=== PATIENT | female | born 1940 | race Caucasian/White ===

== ENCOUNTER → 2023-07-12 16:39 | Outpatient (REF) | payer OTHER, SELFPAY | LOC: HWWDC 16:39 | PROVIDERS: ATTENDING PHYSICIAN Internal Medicine | DX: Z12.31 Encounter for screening mammogram for malignant neoplasm of breast (principal) | CPT/HCPCS: 77063; 77067 ==

== ENCOUNTER 2023-07-30 22:03 | Inpatient (IN) | payer OTHER, SELFPAY ==
[2023-07-30 19:18] VITALS: BP 143/65; BMI 24.5
[2023-07-30] MEDS: NSS 1000 IV (19:35)
[2023-07-30 19:43] LABS: % Basophils 0.1 % (0-2); % Immature Granulocytes 0.6 % (0-0.5); % Lymphocytes 5.8 % (20.5-51.1); % Monocytes 2.4 % (1.7-9.3); % Neutrophils 91.1 % (42.2-75.2); Absolute Immature Granulocytes 0.1 10^3/uL (0-0.05); Absolute Lymphocytes 0.5 10^3/uL (1.2-3.4); Absolute Monocytes 0.2 10^3/uL (0.1-0.6); Absolute Neutrophils 8.5 10^3/uL (1.4-6.5); Hematocrit 42.1 % (37.0-47.0); Hemoglobin 15.2 g/dL (12.0-16.0); Mean Corp Hgb Conc. 36.1 g/dL (33.0-37.0); Mean Corpuscular Hgb 32.2 pg (27.0-31.0); Mean Corpuscular Volume 89.2 fL (81.0-99.0); Mean Platelet Volume 8.5 fL (7.4-10.4); Nucleated Red Blood Cells % 0 %; Platelet Count 286 10^3/uL (130-400); Red Blood Cell Count 4.72 10^6/uL (4.20-5.40); Red Cell Dist. Width 11.9 % (11.5-14.5); White Blood Cell Count 9.3 10^3/uL (4.8-10.8)
[2023-07-30] MEDS: ZOFRAN 4 MG IV ×2 (19:49→21:28)
--- NOTE | 2023-07-30 19:49 | ED.GENMED ---
History of Present Illness
General
Chief Complaint: Overdose Intentional
Source: patient, ambulance crew and previous hospital records (Previous hospitalization March 2023 after intentional overdose of Xanax and fluoxetine.)
Exam Limitations: none
Time Seen by Provider: 07/30/23 19:30
Nursing documentation reviewed up to this point in time: agreed with
Travel History
Have you had any contact with someone who has COVID-19?: No
Do you have any symptoms of coronavirus? Fever > 100 degrees, chills, cough, shortness of breath, sore throat, loss of taste or smell, muscle aches, or headache?: No
History of Present Illness
History of Present Illness:
This is an 82-year-old woman who resides at home with her . She has history of zuf-ljihbop-elktgqoyd diabetes, hypertension, IBS and longstanding history of recalcitrant depression with previous intentional overdose March 2023. At that
time overdosed on Xanax and fluoxetine. Hospitalized here and evaluated by psychiatry. At that time she denied further suicidal thoughts and was discharged to home. She does follow with a telepsychiatrist every month and follows with a counselor
every other week.
More recently she has undergone 6 IV ketamine treatments for persistent depression as well as 6-7 Spravato treatments without improvement in her depression.
She states she was recently diagnosed with significantly low B12 level and received an IM B12 injection 1 week ago and then again yesterday.
This morning she admits to intentional overdose of Excedrin migraine. She believes she ingested approximately 50 tablets/2 bottles of Excedrin Migraine consuming this all at once around 10 AM.
She denies taking any other vqyy-iqs-ksjexzv medications, denies taking extra of her prescribed medications. She denies alcohol use.
A few hours ago she developed nausea and vomiting and eventually confided in her regarding the overdose.
She arrives via EMS.
She denies pain. She has had no hematemesis. No chest pain or palpitations, no dizziness nor lightheadedness.
She continues with significant anhedonia, continues with wish to .
Past History
Past History
ED Past Medical History: HTN, NIDDM, Psychiatric (Depression, anxiety, intentional overdose March 2023 and again today, July 2023) and Other (Irritable bowel syndrome)
ED Past Surgical History:
Social History
Tobacco: Non-smoker
Alcohol: None
Personal:
Living: with family
Employment: Retired
Family History
Family History: Other (Noncontributory)
Phy Exam
Physical Exam
Physical Exam:
GENERAL: 82-year-old woman appears her stated age, awake and alert, oriented x 3. Exhibits a significantly blunted affect. Cooperative with history and exam. Emesis bag in hand.
EYE: pupils equal and reactive. anicteric
NECK: Supple, nontender, no meningismus, no significant adenopathy.
ENT: posterior pharynx is clear, oral mucosa is minimally dry. TM clear b/l, nares patent.
CARDIAC: Regular rate and rhythm. no murmur.
LUNGS: Clear breath sounds bilaterally, no acute respiratory distress, no wheezes/rales/rhonchi
ABDOMEN: Soft, nondistended, without focal tenderness, no r/g, normoactive BS.
NEUROLOGICAL: Alert and oriented x3, no focal neuro deficits.
SKIN: Warm and dry, normal color, skin intact. No rash.
MUSCULOSKELETAL: No C/C/E. peripheral pulses are full and equal b/l. No palpable tenderness.
PSYCH: Blunted affect, depressed mood, admits to intentional overdose and continued wish.
Course
Orders/Labs/Results
Orders:
Orders
07/30/23 19:26
1:1 Observation - Suicide/ Violent Behavior As Directed
07/30/23 19:27
Electrocardiogram (*1) Stat
Reason for Study: Other
Other Reason for Exam: overdose
Cardiac Monitoring- Treatment ONCE
EKG- Treatment ONCE
07/30/23 19:29
0.9% Sodium Chloride 1000 ml [Nss] 1,000 ml IV BOLUS
07/30/23 19:33
Acetaminophen Urgent
Alcohol Urgent
Complete Blood Count/With Diff Urgent
Comprehensive Metabolic Panel Urgent
Magnesium Urgent
Comment: ADD ON
PTT Urgent
Prothrombin Time Urgent
Salicylate Urgent
Vitamin B12 Urgent
Comment: ADD ON
07/30/23 19:40
Ondansetron Injectable [Zofran] 4 mg IV NOW STA
07/30/23 19:44
Add On- LAB Urgent
Tests Added?: Mg, B-12
Urinalysis Reflex To Culture Urgent
Date Specimen was Collected: 07/30/23
Time Specimen was Collected: 19:41
Urine Drug Abuse Screen Urgent
Date Specimen was Collected: 07/30/23
Time Specimen was Collected: 19:41
07/30/23 19:46
Acetylcysteine [Acetadote] 6,480 mg 0.45% Sodium Chloride 1000 ml [0.45%NaCl] 1,000 ml IV ONCE
07/30/23 19:48
Crisis Consult Urgent
Reason for Consult: intentional OD, excedrine migraine; prior suicide attempts (OD 03/2023)
07/30/23 20:00
Acetylcysteine [Acetadote] 9,700 mg 0.45% Sodium Chloride 250 ml [0.45%NaCl] 200 ml IV NOW
07/30/23 21:08
Potassium Chloride Powder [Klor-Con] 40 meq PO NOW STA
07/30/23 21:09
Sodium Bicarbonate 50 meq IV NOW STA
07/30/23 21:09
0.45% Sodium Chloride 1000 ml [0.45%NaCl] 1,000 ml Sodium Bicarbonate 75 meq IV 250 mls/hr
07/30/23 21:30
Acetylcysteine [Acetadote] 3,240 mg 0.45% Sodium Chloride 500 ml [0.45%NaCl] 500 ml IV ONCE
Abnormal Lab Results
07/30/23 07/30/23
19:33 19:44
MCH 32.2 H pg
(27.0-31.0)
Abs Immat Gran (auto) 0.1 H 10^3/uL
(0-0.05)
Absolute Neuts (auto) 8.5 H 10^3/uL
(1.4-6.5)
Absolute Lymphs (auto) 0.5 L 10^3/uL
(1.2-3.4)
Immature Gran % 0.6 H %
(0-0.5)
Neutrophils % 91.1 H %
(42.2-75.2)
Lymphocytes % 5.8 L %
(20.5-51.1)
Potassium 3.4 L mmol/L
(3.5-5.1)
Carbon Dioxide 17 L mmol/L
(22-30)
Glucose 248 H mg/dl
(70-99)
Magnesium 1.5 L mg/dl
(1.6-2.3)
Total Bilirubin 1.6 H mg/dl
(0.2-1.3)
Vitamin B12 958 H pg/ml
(239-931)
Urine Ketones 3+ A
(Negative)
Urine Glucose 3+ A
(Negative)
Salicylates 34.1 H* mg/dl
(2.0-20.0)
Acetaminophen 82 H ug/ml
(10-30)
07/30/23 19:33
07/30/23 19:33
Vital Signs
Initial and Last Documented VS:
Initial Vital Signs
Temp Pulse Resp BP Pulse Ox
98.1 F 93 20 143/65 98
07/30/23 19:18 07/30/23 19:18 07/30/23 19:18 07/30/23 19:18 07/30/23 19:18
Last Documented Vital Signs
Temp Pulse Resp BP Pulse Ox
98.1 F 93 20 143/65 99
07/30/23 19:18 07/30/23 19:18 07/30/23 19:18 07/30/23 19:18 07/30/23 19:39
MDM/Problems Addressed
Differential Diagnosis Includes:
Intentional overdose Excedrin Migraine with potential for significant acetaminophen as well as significant aspirin overdose. Other concern for caffeine overdose and according to literature Excedrin Migraine may also contain magnesium and
diphenhydramine thus concern for anticholinergic side effects and hypermagnesemia.
As patient is symptomatic with nausea and vomiting must assume significant acetaminophen ingestion thus will initiate IV fluids and initiate Acetadote.
As overdose was over 9 hours ago, acetaminophen and salicylate nomogram will likely not be helpful.
EKG shows normal sinus rhythm at 87, mildly flattened T waves throughout but no evidence of QT prolongation. No arrhythmia noted on monitor.
Labs are pending including salicylate, acetaminophen levels. Will check magnesium level and due to reportedly severely low B12 level will check B12 as well.
Patient will require acute hospitalization for continued Acetadote, continued one-to-one observation, cardiac monitoring and will require psychiatry involvement as well.
Chronic conditions affecting care: DM, HTN and Psychiatric illness
Acute Exacerbation and/or Progression of Chronic Illness: DM and Psychiatric illness
*Pulse Oximetry
Patient hypoxic: no
*EKG
Interpreted by ED Provider?: Yes
Comparison EKG: changes noted (Globally flattened T waves are new compared to previous EKG March 2023)
Rate: normal
Rhythm: sinus
[place]: normal axis
Interval: normal interval
QRS Pattern: normal QRS
Ischemia: other (Flattened T waves)
*Composite [employer] Worker Interpretation
Rate: normal
Interpretation: normal
Rhythm: sinus
*Critical Care Note
Total Time (30-74mins, 75-104mins- exclusive of procedures): 45
comment:
Critical care statement: A total of 45 minutes of critical care time was provided for this patient. This includes management of unstable vital signs, evaluation of the patient at bedside, reviewing the patient's pertinent medical records, discussion
with consultants, review of old EKGs and review of pertinent medical records. This time with separate from time utilized to perform the aforementioned documented procedures
Update Note
Update Note:
07/30/2023 2110 PM
Patient remains hemodynamically stable.
Continues with significantly depressed mood but remains alert.
Mild to moderate metabolic acidosis with elevated salicylate level of 34, elevated acetaminophen level of 82.
Potassium mildly low at 3.4 will be repleted orally. Patient has had no further nausea nor vomiting after IV dose of Zofran.
Due to metabolic acidosis, elevated salicylate will give an IV dose of bicarb and initiate bicarb drip.
Will admit to hospitalist service.
ED Attending Note
-
Portions of this chart may have been created with voice recognition software.� Occasional wrong word or��sound alike� substitutions may have occurred due to the inherent limitations of voice recognition software.
Discharge Plan
Departure
Patient Disposition: Admit
Date of Disposition: 07/30/23
Time of Disposition: 21:12
Admit to: ICU
Admit to doctor: Lencho
Presentation/result/management discussed w/ accepting MD/DO: Hospitalist
Condition: Serious
Discharge Problem:
Intentional overdose, Intentional acetaminophen overdose, Poisoning by salicylate, intentional self-harm
Prescriptions:
No Action
metformin 500 mg tablet
500 mg PO DAILY
potassium chloride 10 mEq capsule, extended release
10 meq PO DAILY
amlodipine 10 mg tablet
10 mg PO DAILY
hydrochlorothiazide 25 mg tablet
25 mg PO DAILY
albuterol sulfate 90 mcg/actuation HFA aerosol inhaler
2 puff INHALATION R Q6HPRN PRN (Reason: sob)
aspirin 81 mg Tablet,Delayed Release (Dr/Ec)
81 mg PO DAILY
ascorbic acid (vitamin C) [Vitamin C] 500 mg Tablet
1,000 mg PO DAILY
PreserVision AREDS-2 250-90-40-1 mg Capsule
1 tab PO BID
niacin (inositol niacinate) [Niacin Flush Free] 400 mg niacin (500 mg) Capsule
2 cap PO DAILY
fluoxetine 20 mg tablet
50 mg PO DAILY
cholecalciferol (vitamin D3) [Vitamin D3] 25 mcg (1,000 unit) Tablet
50 mcg PO DAILY
Metamucil Fiber Singles 3.4 gram Powder In Packet
1 packet PO DAILY
melatonin 10 mg Tablet
10 mg PO HS
Prevagen
1 tab PO DAILY
Referrals:
Madelaine Woodson MD [Family Provider] -
Interventions
Interventions:
*Risk Screen - Suicide Last Done: 07/30/23 19:18
*General Assessment Last Done: 07/30/23 19:18
*Neglect/Abuse Screening Last Done: 07/30/23 19:18
ED- Cardiac Assessment Last Done: 07/30/23 19:27
ED- Neurological Assessment Last Done: 07/30/23 19:27
ED-Psychological Assessment Last Done: 07/30/23 19:27
ED- Pulmonary Assessment Last Done: 07/30/23 19:39
Discharge Date and Time
Print Language: TAJIK
[2023-07-30 19:52] LABS: Urine Albumin Trace (Neg - Trace); Urine Bilirubin Negative (Negative); Urine Character Clear (Clear); Urine Color Yellow; Urine Glucose 3+ (Negative); Urine Ketone 3+ (Negative); Urine Leukocyte Negative (Negative); Urine Nitrite Negative (Negative); Urine Occult Blood Negative (Negative); Urine Urobilinogen Negative (Neg - 1+)
[2023-07-30 19:58] LABS: APTT 24.7 Sec (23.4-35.0); INR 0.97; PT 12.7 Sec (11.4-14.6)
[2023-07-30 20:00] VITALS: BP 133/66
[2023-07-30 20:01] LABS: Amphetamines Negative (Negative); Barbiturates Negative (Negative); Benzodiazepines Negative (Negative); Buprenorphine Negative (Negative); Cocaine Negative (Negative); Marijuana Negative (Negative); Methadone Negative (Negative); Methamphetamines Negative (Negative); Opiates Negative (Negative); Phencyclidine Negative (Negative); Tricyclic Antidepressants Negative (Negative)
[2023-07-30 20:09] LABS: ALT (SGPT) 16 U/L (0-35); AST (SGOT) 27 U/L (14-36); Acetaminophen 82 ug/ml (10-30); Albumin 4.5 g/dl (3.5-5.0); Alcohol None Detected; Alkaline Phosphatase 104 U/L (38-126); Blood Urea Nitrogen 14 mg/dl (7-17); Calcium 10.1 mg/dl (8.4-10.2); Carbon Dioxide 17 mmol/L (22-30); Chloride 101 mmol/L (98-107); Estimated Creatinine Clearance 65 ml/min; Glucose 248 mg/dl (70-99); Magnesium 1.5 mg/dl (1.6-2.3); Potassium 3.4 mmol/L (3.5-5.1); Salicylate 34.1 mg/dl (2.0-20.0); Sodium 135 mmol/L (135-145); Total Bilirubin 1.6 mg/dl (0.2-1.3); Total Protein 7.5 g/dl (6.3-8.2); eGFR > 60.00
[2023-07-30] MEDS: ACETADOTE 248.5 MG IV (20:35)
[2023-07-30 20:47] LABS: Vitamin B12 958 pg/ml (239-931)
[2023-07-30 21:00] VITALS: BP 125/69
[2023-07-30] MEDS: KLOR-CON 40 MEQ PO (21:16)
[2023-07-30] MEDS: SODIUM BICARBONATE 50 MEQ IV (21:17)
--- NOTE | 2023-07-30 21:34 | HPS.HSE ---
Addendum entered and electronically signed by Prateek Musa MD 07/30/23 22:38:
Hemodynamically stable
Downgrade to IMU
Original Note:
Family Physician
-
Family Physician: Madelaine Woodson
Chief Complaint
-
N/V, intentional OD
History of Present Illness
82F [facility] HX major depression, attempted suicide with intentional OD in Mar 2023, HX DM, HTN IBS, anxiety/depression, pw intentional overdose of Excedrin migraine. Reports approximately ngested approximately 50 tablets/2 bottles of Excedrin
Migraine consuming this all at once around 10 AM.
Associated with onset of nausea and vomiting and eventually confided to the regarding the overdose.
She continues with significant anhedonia, continues with wish to .
ROS
Denies taking any other bhhm-swq-smqzitz medications
Denies taking extra of her prescribed medications.
Denies alcohol use.
No palpitations, no dizziness nor lightheadedness.
Medical History
Past Medical History
Past Medical History: Reports Other
Additional Past Medical History:
HTN
NIDDM
Depression, anxiety
Intentional overdose March 2023 and again today, July 2023
Irritable bowel syndrome
Past Surgical History: Reports Gynocological (C section )
Social History
Tobacco: Non-smoker
Drug: None
Personal:
Living: With Family
Family History
Family History: Not pertinent
Allergies / Home Medications
Allergies reflects when Allergies were last updated in [employer].
Home Medications with original date entered in [employer]
Allergy/Medication List:
Allergies
Allergy/AdvReac Type Severity Reaction Status Date / Time
atropine [From ] Allergy Anaphylaxis Verified 07/30/23 19:28
clindamycin Allergy Unknown Verified 07/30/23 19:28
codeine Allergy Unknown Verified 07/30/23 19:28
hyoscyamine [From ] Allergy Anaphylaxis Verified 07/30/23 19:28
lisinopril [From Prinivil] Allergy Unknown Verified 07/30/23 19:28
monosodium glutamate Allergy Unknown Verified 07/30/23 19:28
Penicillins Allergy Rash Verified 07/30/23 19:28
phenobarbital [From ] Allergy Anaphylaxis Verified 07/30/23 19:28
scopolamine [From ] Allergy Anaphylaxis Verified 07/30/23 19:28
shellfish derived Allergy Unknown Verified 07/30/23 19:28
tuna oil Allergy TUNA Verified 07/30/23 19:28
FISH-UNKNOWN
Home Medications
albuterol sulfate 90 mcg/actuation aerosol inhaler 2 puff inhalation R Q6HPRN PRN sob 03/29/23
amlodipine 10 mg tablet 10 mg PO DAILY Blood Pressure 03/29/23
ascorbic acid (vitamin C) 500 mg tablet (Vitamin C) 1,000 mg PO DAILY Supplement 03/29/23
aspirin 81 mg tablet,delayed release 81 mg PO DAILY Blood Clot Prevention/Tx 03/29/23
hydrochlorothiazide 25 mg tablet 25 mg PO DAILY Blood Pressure 03/29/23
metformin 500 mg tablet 500 mg PO DAILY Diabetes 03/29/23
potassium chloride 10 mEq capsule,extended release 10 meq PO DAILY Electrolyte Repletion 03/29/23
vit C 250 mg-vit E 90 mg-zinc 40 mg-copper 1 vb-eloqme-vxkbcd capsule (PreserVision AREDS-2) 1 tab PO BID Supplement 03/29/23
Prevagen 1 tab PO DAILY 07/30/23
cholecalciferol (vitamin D3) 25 mcg (1,000 unit) tablet (Vitamin D3) 50 mcg PO DAILY 07/30/23
fluoxetine 20 mg tablet 50 mg PO DAILY 07/30/23
melatonin 10 mg tablet 10 mg PO HS 07/30/23
niacin 400 mg (inositol niacinate 500 mg) capsule (Niacin Flush Free) 2 cap PO DAILY 07/30/23
psyllium husk (aspartame) 3.4 gram oral powder packet (Metamucil Fiber Singles) 1 packet PO DAILY 07/30/23
Review of Systems
-
Constitutional: Reports No Symptoms
EENT: Reports No Symptoms
Respiratory: Reports No Symptoms
Cardiac: Reports No Symptoms
Abdomen/GI: Reports Nausea and Vomiting
: Reports No Symptoms
Musculoskeletal: Reports No Symptoms
Skin: Reports No Symptoms
Neurological: Reports No Symptoms
Endocrine: Reports No Symptoms
Hematologic/Lymphatic: Reports No Symptoms
Psych: Reports See HPI
Physical Exam
Vital Signs
Vital Signs
Temp Pulse Resp BP Pulse Ox
98.1 F 78 14 125/69 98
07/30/23 19:18 07/30/23 21:15 07/30/23 21:15 07/30/23 21:00 07/30/23 21:15
Physical Exam
General: Other (very flat affect )
HEENT: NormoCephalic, Anicteric and PERRLA; No Moist mucous membranes
Respiratory: Clear; No Wheezes, Rales or Rhonchi
Cardiac: S1/S2 and Regular Rhythm; No Tachycardia or Murmur
GI: Soft, Non Tender, Non Distended and Normal Bowel Sounds
Rectal: Deferred by Provider
Genito-urinary: Deferred by me
Musculoskeletal: No Edema
Skin: Warm and Dry
Neuro: AO x 3 and Nonfocal/grossly intact
Psych: Depressed
Laboratory Results
-
07/30/23 19:33
07/30/23 19:33
Laboratory Results
PT 12.7 Sec (11.4-14.6) 07/30/23 19:33
INR 0.97 07/30/23 19:33
APTT 24.7 Sec (23.4-35.0) 07/30/23 19:33
Total Bilirubin 1.6 mg/dl (0.2-1.3) H 07/30/23 19:33
AST 27 U/L (14-36) 07/30/23 19:33
ALT 16 U/L (0-35) 07/30/23 19:33
Alkaline Phosphatase 104 U/L (38-126) 07/30/23 19:33
Data Reviewed
-
Lab Data: Labs Reviewed by me
Old Records: Reviewed
Impression/Plan
-
Reviewed VS: unremarkable and stable
Data
nl CBC
K 3.4
CO2 17
hi MA 17
UTS: POS Salicylates 34 , Acetaminophen 82
NEG ETOH
unremarkable LFTs
Last hospitalist admission: 03/29 - 04/01/23
DC Dx: Drug OD, depression
ASSESSMENT & PLAN
Intentional OD with Excedrin migraine at 10 am. + N/V
POS Salicylates and POS acetaminophen
Associated Hi AG MA
Hemodynamically stable.
- ER initiated Tx: Acetylcysteine protocol
Acetylcysteine 9,700 mg 1/2 NS 250 ml NOW
Acetylcysteine 6,480 mg in NS 1,000 ml IV ONCE
Acetylcysteine 3,240 mg 1/2 NS 500 ml x once
KCL 40 mEq x1
IV HCO3 50 meq x 1
IV HCO3 gtt ( 75 meq IV 250 mls/hr in 1/2 NS 1000cc )
1 to 1 sitter
Persistent wish but said no immediate plan
Major Depressive d/o, intentional OD/suicide attempt
HX Intentional fluoxetine/Xanax overdose in Mar 2023 committed for 302 'd , denied suicidal thoughts susequently DC home
- Currently follow with a telepsychiatry every month and follows with a counselor every other week.
- S/p 6 IV ketamine treatments for persistent depression as well as 6-7 Spravato treatments without improvement
- 1 to 1 sitter
- Urgent Crisis Consult
- Psych consult
Anxiety/depression
- Held Xanax, fluoxetine, hydroxyzine
Recently diagnosed with significantly low B12 level
- received an IM B12 injection 1 week ago and then again yesterday.
Essential HTN
- Held amlodipine, Entresto, thiazide
DMT2
-Hold metformin
IBS
- Hold fiber supplement
DVT Px: SQH
Code: Full
ICU
Case Eliotr dw spouse and daughter at bed side
[2023-07-30 22:00] VITALS: BP 121/66
[2023-07-30] MEDS: ACETADOTE 516.200000000000045 MG IV (22:04)
[2023-07-30] MEDS: MAGNESIUM SULFATE 102 GRAMS IV (22:15)
[2023-07-30] MEDS: SODIUM BICARBONATE 1075 MEQ IV (22:16)
[2023-07-30] MEDS: COMPAZINE 5 MG IV (22:25)
[2023-07-30 23:10] VITALS: BP 132/63
[2023-07-30 23:12] VITALS: BMI 23.9
--- NOTE | 2023-07-30 23:38 | PTCARENOTE ---
ax3 flat withdrawn- 1-1 at beside safe environment maintained- fluids /meds per orders see mar. sinus afebrile bp wnl
[2023-07-31] VITALS (12 sets, daily range): BP systolic 121–141; BP diastolic 53–112; BMI 24.0
[2023-07-31] MEDS: ACETADOTE 1032.40000000000009 MG IV (02:40)
[2023-07-31] MEDS: NSS 1000 IV (02:43)
[2023-07-31] MEDS: COMPAZINE 5 MG IV (04:51)
[2023-07-31 05:31] LABS: Hematocrit 34.7 % (37.0-47.0); Hemoglobin 12.3 g/dL (12.0-16.0); Mean Corp Hgb Conc. 35.4 g/dL (33.0-37.0); Mean Corpuscular Hgb 32.1 pg (27.0-31.0); Mean Corpuscular Volume 90.6 fL (81.0-99.0); Platelet Count 226 10^3/uL (130-400); Red Blood Cell Count 3.83 10^6/uL (4.20-5.40); Red Cell Dist. Width 11.9 % (11.5-14.5); White Blood Cell Count 8.9 10^3/uL (4.8-10.8)
[2023-07-31 05:51] LABS: ALT (SGPT) < 10 U/L (0-35); AST (SGOT) 18 U/L (14-36); Albumin 3.1 g/dl (3.5-5.0); Alkaline Phosphatase 68 U/L (38-126); Blood Urea Nitrogen 14 mg/dl (7-17); Calcium 8.9 mg/dl (8.4-10.2); Carbon Dioxide 26 mmol/L (22-30); Chloride 100 mmol/L (98-107); Estimated Creatinine Clearance 65 ml/min; Glucose 99 mg/dl (70-99); Potassium 2.7 mmol/L (3.5-5.1); Sodium 137 mmol/L (135-145); Total Bilirubin 1.1 mg/dl (0.2-1.3); Total Protein 5.6 g/dl (6.3-8.2); eGFR > 60.00
[2023-07-31] MEDS: KCL 270 MEQ IV (06:35)
[2023-07-31 06:37] LABS: Vitamin B12 556 pg/ml (239-931)
--- NOTE | 2023-07-31 07:55 | W.PN.HOSP.TC ---
Today's Communication/Plan
-
see bold
Assessment / Plan
Assessment / Plan
HPI: 82-year-old woman who resides at home with her . She has history of dlf-jcecumt-beftbogiz diabetes, hypertension, IBS and longstanding history of recalcitrant depression with previous intentional overdose March 2023. At that time
overdosed on Xanax and fluoxetine. Hospitalized here and evaluated by psychiatry. At that time she denied further suicidal thoughts and was discharged to home. She does follow with a telepsychiatrist every month and follows with a counselor every
other week. More recently she has undergone 6 IV ketamine treatments for persistent depression as well as 6-7 Spravato treatments without improvement in her depression. She states she was recently diagnosed with significantly low B12 level and
received an IM B12 injection 1 week ago and then again yesterday. This morning she admits to intentional overdose of Excedrin migraine. She believes she ingested approximately 50 tablets/2 bottles of Excedrin Migraine consuming this all at once
around 10 AM.
A/P:
#Intentional OD with Excedrin migraine
#POS Salicylates and POS acetaminophen
#Anion gap metabolic acidosis
Currently receiving the N-acetylcysteine protocol
Continue sodium bicarb IV fluids, supportive care, monitor
#Suicidal ideation
#Anxiety/depression
Appreciate psychiatry input, recommend starting Cymbalta 20 mg daily
Patient declining inpatient psychiatric hospitalization
Continue one-to-one sitter
#Hypomagnesemia
Replete by IV, check a.m. mag
#Recently diagnosed with significantly low B12 level
S/p IM B12 injection 1 week ago and then again 07/29
#Essential HTN
BP 131/67, continue holding amlodipine, Entresto, thiazide
DMT2
-Hold metformin
-Carb controlled diet, SSI
IBS
- Hold fiber supplement
DVT prophylaxis�subcu Lovenox
Full code
Total time spent to see the patient on the floor, examine the patient, review data and lab results, discuss treatment plan with patient, nursing staff around 51 minutes.
Physical Exam
General: No acute distress
HEENT: Normocephalic, Atraumatic, EOMI, MMM
Respiratory: Clear to Auscultation bilaterally
Cardiac: Normal S1/S2, Regular Rate and Rhythm
GI: Soft, Nontender, Nondistended, Normal Bowel Sounds
Extremities: No Clubbing, Cyanosis, or Edema
Neuro: Nonfocal/Grossly Intact
Psych: Calm, Cooperative
Derm: No Visible lesions
Anticipated Discharge: 24 - 48 hours
Subjective/Interval History
-
Date of Service: July 31, 2023
She had some nausea that is since resolved. No abdominal pain. No chest pain, no shortness of breath. No fever.
Objective Data
-
Labs:
Laboratory Results
07/30/23 07/31/23
19:33 04:44
WBC 8.9
Hgb 12.3
Hct 34.7 L
Plt Count 226 D
PT 12.7
INR 0.97
APTT 24.7
Sodium 135 137
Potassium 3.4 L 2.7 L*
Chloride 101 100
Carbon Dioxide 17 L 26
BUN 14 14
Creatinine 0.6 0.6
Glucose 248 H 99
Calcium 10.1 8.9
Total Bilirubin 1.6 H 1.1
AST 27 18
ALT 16 < 10
Alkaline Phosphatase 104 68
Vital Signs:
Vital Signs
Temp Pulse Resp BP Pulse Ox
99.2 F 72 13 141/64 97
07/31/23 06:55 07/31/23 06:00 07/31/23 06:00 07/31/23 06:00 07/31/23 06:55
--- NOTE | 2023-07-31 08:00 | PTCARENOTE ---
Received pt in bed, aox3, vss, assisted oob to bathroom, assisted pt w/ full bath. Pt cooperative and talkative. Denies nausea, currently NPO, awaiting diet orders from . NS @ 40ml/hr R FA, Acetylcysteine @ 64.5 ml/hr L FA. 1:1 maintained for pt
safety.
[2023-07-31] MEDS: HEPARIN 5000 UNITS SC (08:47)
--- NOTE | 2023-07-31 11:15 | PTCARENOTE ---
Received patient from morning RN. Patient currently having conversation with psychiatrist.
--- NOTE | 2023-07-31 11:34 | W.PN.UPDATE ---
Update Note
Progress Note Update
Psychiatric consultation dictated.
Patient took intentional dose of Excedrin, approximately 50 pills. Acetaminophen level was 82, Salicylates 34. She reports he was feeling depressed regarding deaths of several of her friends as well as her son who 14 years ago. Additionally she
[place] and reports she does not like it there and missed her old home.
She has had some anxiety much of her life but apparently her symptoms worsened substantially after the 2 Covid vaccinations in 2019. Since than she was tried on Zoloft, Lexapro, Wellbutrin and more recently esketamine with no success. Most recently
was on Prozac 55 mg daily to be increased to 60 mg.
Presently she is in good mood, denies suicidal thoughts, happy she did not . Appetite stable, denies insomnia. Cognitively has mild deficit in immediate recall but otherwise intact.
At this point I would try Cymbalta starting at 20 mg daily.
She is not interested in inpatient hospitalization as has an OP psychiatrist as well as therapist.
Will follow in hospital.
[2023-07-31] MEDS: CYMBALTA DELAYED RELEASE 20 MG PO (12:08)
[2023-07-31] MEDS: MAGNESIUM SULFATE 50 IV (13:20)
[2023-07-31] MEDS: KCL 40 MEQ PO ×2 (14:12→20:00)
[2023-07-31] MEDS: LOVENOX 40 MG SC (17:28)
[2023-08-01] VITALS (9 sets, daily range): BP systolic 121–149; BP diastolic 59–78; BMI 25.0
[2023-08-01] MEDS: NSS 1000 IV (02:41)
[2023-08-01] MEDS: COMPAZINE 5 MG IV (02:55)
[2023-08-01 04:26] LABS: Hematocrit 32.4 % (37.0-47.0); Hemoglobin 11.1 g/dL (12.0-16.0); Mean Corp Hgb Conc. 34.3 g/dL (33.0-37.0); Mean Corpuscular Hgb 31.4 pg (27.0-31.0); Mean Corpuscular Volume 91.8 fL (81.0-99.0); Mean Platelet Volume 8.9 fL (7.4-10.4); Platelet Count 174 10^3/uL (130-400); Red Blood Cell Count 3.53 10^6/uL (4.20-5.40); Red Cell Dist. Width 12.3 % (11.5-14.5); White Blood Cell Count 6.3 10^3/uL (4.8-10.8)
[2023-08-01 04:51] LABS: ALT (SGPT) 11 U/L (0-35); AST (SGOT) 27 U/L (14-36); Albumin 2.8 g/dl (3.5-5.0); Alkaline Phosphatase 63 U/L (38-126); Blood Urea Nitrogen 18 mg/dl (7-17); Calcium 9.1 mg/dl (8.4-10.2); Carbon Dioxide 25 mmol/L (22-30); Chloride 109 mmol/L (98-107); Estimated Creatinine Clearance 55 ml/min; Glucose 96 mg/dl (70-99); Magnesium 2.3 mg/dl (1.6-2.3); Phosphorus 1.8 mg/dl (2.5-4.5); Potassium 3.9 mmol/L (3.5-5.1); Sodium 138 mmol/L (135-145); Total Bilirubin 1.6 mg/dl (0.2-1.3); eGFR > 60.00
[2023-08-01 05:02] LABS: Glucose - Point of Care 104 mg/dl (70-99)
--- NOTE | 2023-08-01 05:34 | PTCARENOTE ---
Pt awake and talking most of the night with staff. pt reports feeling best she has in months. Pt verbalizes being regretful for attempting to hurt herself. Pt weighing her options for inpt vs outpt psych. Pt expressing her previous experience with
inpt and desire to have different experience/ outcome. Emotional support provided. 1:1 observation maintained at bedside at all times. Pt complaining of some nausea overnight, Todd FERNANDEZ notified, Medication administered as ordered. IVF infusing as
ordered. Vital signs stable Will continue to monitor.
--- NOTE | 2023-08-01 07:49 | W.PN.HOSP.TC ---
Addendum entered and electronically signed by Andrew Morales MD 08/01/23 13:02:
Correction
Stable for transfer to [facility]
Original Note:
Today's Communication/Plan
-
Psych cleared to be off of one-to-one
Stable for telemetry
Assessment / Plan
Assessment / Plan
HPI: 82-year-old woman who resides at home with her . She has history of hlh-yozfrtg-dlakmtbqq diabetes, hypertension, IBS and longstanding history of recalcitrant depression with previous intentional overdose March 2023. At that time
overdosed on Xanax and fluoxetine. Hospitalized here and evaluated by psychiatry. At that time she denied further suicidal thoughts and was discharged to home. She does follow with a telepsychiatrist every month and follows with a counselor every
other week. More recently she has undergone 6 IV ketamine treatments for persistent depression as well as 6-7 Spravato treatments without improvement in her depression. She states she was recently diagnosed with significantly low B12 level and
received an IM B12 injection 1 week ago and then again yesterday. This morning she admits to intentional overdose of Excedrin migraine. She believes she ingested approximately 50 tablets/2 bottles of Excedrin Migraine consuming this all at once
around 10 AM.
A/P:
#Intentional OD with Excedrin migraine
#POS Salicylates and POS acetaminophen
#Anion gap metabolic acidosis
S/p the N-acetylcysteine protocol
Psych cleared to be off of one-to-one
Stable for telemetry
#Suicidal ideation
#Anxiety/depression
Appreciate psychiatry input, recommend starting Cymbalta 20 mg daily
Patient declining inpatient psychiatric hospitalization
Psych cleared to be off of one-to-one
#Hypokalemia
#Hypomagnesemia
Repleted and resolved
#Hypophosphatemia
Replete, recheck a.m. labs
#Recently diagnosed with significantly low B12 level
S/p IM B12 injection 1 week ago and then again 07/29
#Essential HTN
Blood pressure trending up, resume amlodipine 10 mg daily
DMT2
-Resume metformin
-Carb controlled diet, SSI
IBS
-Resume fiber supplement
DVT prophylaxis�subcu Lovenox
Full code
Total time spent to see the patient on the floor, examine the patient, review data and lab results, discuss treatment plan with patient, nursing staff around 51 minutes.
Physical Exam
General: No acute distress
HEENT: Normocephalic, Atraumatic, EOMI, MMM
Respiratory: Clear to Auscultation bilaterally
Cardiac: Normal S1/S2, Regular Rate and Rhythm
GI: Soft, Nontender, Nondistended, Normal Bowel Sounds
Extremities: No Clubbing, Cyanosis, or Edema
Neuro: Nonfocal/Grossly Intact
Psych: Calm, Cooperative
Derm: No Visible lesions
Anticipated Discharge: 24 - 48 hours
Subjective/Interval History
-
Date of Service: July 31, 2023
Patient has some nausea, resolved. She denies suicidal ideation, denies plan. No fever, no chest pain, no shortness of breath.
Objective Data
-
Labs:
Laboratory Results
07/31/23
04:44
WBC 8.9
Hgb 12.3
Hct 34.7 L
Plt Count 226 D
Sodium 137
Potassium 2.7 L*
Chloride 100
Carbon Dioxide 26
BUN 14
Creatinine 0.6
Glucose 99
Calcium 8.9
Total Bilirubin 1.1
AST 18
ALT < 10
Alkaline Phosphatase 68
Vital Signs:
Vital Signs
Temp Pulse Resp BP Pulse Ox
99.3 F 89 18 131/67 96
07/31/23 12:25 07/31/23 12:01 07/31/23 12:01 07/31/23 12:01 07/31/23 12:25
[2023-08-01] MEDS: CYMBALTA DELAYED RELEASE 20 MG PO (07:53)
--- NOTE | 2023-08-01 11:40 | W.PN.UPDATE ---
Update Note
Progress Note Update
Chart reviewed; pt seen for 45 minutes.
Pt was cooperative and open about her recent overdose of Tylenol. She says that she has been dealing with a series of losses, and has a terrible fear of getting older and losing all control over her life. A few days ago the depression worsened
to the point where she decided to overdose on Tylenol. 'I didn't plan ahead I just did it.' She tells me she doesn't think she would do this again if she were back home, but she cannot definitively state that she will not. About 9 months ago she
overdosed on Xanax and was hospitalized at [facility]. She described that experience as anti-therapeutic, and felt that it did not help her mood.
She is unhappy that she and her moved from their long time home to a senior facility, and says she just can't seem to adjust. She has always been a worrier, and now worries about her beginning to forget things.
I asked her several times if there were any positives in her life, anything she could look forward to. She was not able to list even one thing that she could look forward to.
Her mood is profoundly depressed; she does not smile or have much perspective on what might make her feel better. Admits to poor sleep for several months. No hallucinations or delusions. Lots of anxiety.
Insight and judgment impaired by low mood.
Past trials of antidepressants not helpful in improving her mood (Prozac, Lexapro, Zoloft). Yesterday she was started on Cymbalta.
A/P- Major Depression, severe. No need for 1:1 while here in the hospital.
I recommend that pt consent to a brief stay at an in patient psychiatric unit, at least until the Cymbalta can be raised to a therapeutic dose. So far she is unwilling to voluntarily be admitted anywhere. Another option might be a combination of
medication management and partial hospital stay until her depression lifts- Whether the second option is feasible would have to be determined tomorrow as today is [place].
Psychiatry will follow patient.
[2023-08-01] MEDS: NEUTRA-PHOS POWDER PACKET 250 MG PO (12:04)
[2023-08-01] MEDS: NEUTRA-PHOS POWDER PACKET PO ×3 (12:21→21:44)
--- NOTE | 2023-08-01 12:59 | PTCARENOTE ---
Patient was on 1:1 this morning. Psych evaluated and discontinued 1:1 order. Patient is now sitting in bed with at bedside. Patient is communicating her feelings. Denies feelings of self harm when asked at this time. Patient is for med/surg
transfer today. Compliant with plan of care.
--- NOTE | 2023-08-01 15:25 | PTCARENOTE ---
Report given to [facility] for transfer to room 2130. Patient and educated about plan of care. Belongings packed up by patient.
[2023-08-01] MEDS: GLUCOPHAGE 500 MG PO (17:13)
[2023-08-01] MEDS: NORVASC 10 MG PO (17:13)
[2023-08-01] MEDS: ASPIR LOW (ENTERIC COATED) 81 MG PO (17:13)
[2023-08-01] MEDS: LOVENOX 40 MG SC (17:14)
[2023-08-01] MEDS: OCUVITE SOFTGEL 1 CAP PO (20:52)
[2023-08-02 05:10] LABS: Hematocrit 34.7 % (37.0-47.0); Hemoglobin 11.7 g/dL (12.0-16.0); Mean Corp Hgb Conc. 33.7 g/dL (33.0-37.0); Mean Corpuscular Hgb 32.1 pg (27.0-31.0); Mean Corpuscular Volume 95.1 fL (81.0-99.0); Mean Platelet Volume 8.9 fL (7.4-10.4); Platelet Count 166 10^3/uL (130-400); Red Blood Cell Count 3.65 10^6/uL (4.20-5.40); Red Cell Dist. Width 12.1 % (11.5-14.5); White Blood Cell Count 5.1 10^3/uL (4.8-10.8)
[2023-08-02 05:45] LABS: ALT (SGPT) 13 U/L (0-35); AST (SGOT) 31 U/L (14-36); Alkaline Phosphatase 64 U/L (38-126); Blood Urea Nitrogen 13 mg/dl (7-17); Calcium 9.1 mg/dl (8.4-10.2); Carbon Dioxide 26 mmol/L (22-30); Chloride 107 mmol/L (98-107); Estimated Creatinine Clearance 65 ml/min; Glucose 93 mg/dl (70-99); Magnesium 1.9 mg/dl (1.6-2.3); Phosphorus 3.2 mg/dl (2.5-4.5); Potassium 3.8 mmol/L (3.5-5.1); Sodium 135 mmol/L (135-145); Total Bilirubin 1.7 mg/dl (0.2-1.3); Total Protein 5.2 g/dl (6.3-8.2); eGFR > 60.00
[2023-08-02 06:00] VITALS: BMI 24.6
[2023-08-02 07:25] VITALS: BP 147/72
[2023-08-02] MEDS: NORVASC 10 MG PO (08:34)
[2023-08-02] MEDS: GLUCOPHAGE 500 MG PO (08:34)
[2023-08-02] MEDS: VITAMIN C 1000 MG PO (08:34)
[2023-08-02] MEDS: CYMBALTA DELAYED RELEASE 20 MG PO (08:34)
[2023-08-02] MEDS: OCUVITE SOFTGEL 1 CAP PO (08:34)
[2023-08-02] MEDS: ASPIR LOW (ENTERIC COATED) 81 MG PO (08:34)
[2023-08-02] MEDS: NEUTRA-PHOS POWDER PACKET PO (08:35)
[2023-08-02] MEDS: KCL 10 MEQ PO (08:35)
--- NOTE | 2023-08-02 08:37 | PTCARENOTE ---
pt states feeling very overwhelmed with the thought of having to go to inpatient facility but knows it would be the best thing for her. states that she usually does word find puzzles to help relax. this nurse offered to bring her some but she states
she only does them on her computer.
--- NOTE | 2023-08-02 08:46 | W.PN.HOSP.TC ---
Today's Communication/Plan
-
Discharge to inpatient psych when bed available
Assessment / Plan
Assessment / Plan
HPI: 82-year-old woman who resides at home with her . She has history of zpi-lzgzqrw-appffresr diabetes, hypertension, IBS and longstanding history of recalcitrant depression with previous intentional overdose March 2023. At that time
overdosed on Xanax and fluoxetine. Hospitalized here and evaluated by psychiatry. At that time she denied further suicidal thoughts and was discharged to home. She does follow with a telepsychiatrist every month and follows with a counselor every
other week. More recently she has undergone 6 IV ketamine treatments for persistent depression as well as 6-7 Spravato treatments without improvement in her depression. She states she was recently diagnosed with significantly low B12 level and
received an IM B12 injection 1 week ago and then again yesterday. This morning she admits to intentional overdose of Excedrin migraine. She believes she ingested approximately 50 tablets/2 bottles of Excedrin Migraine consuming this all at once
around 10 AM.
A/P:
#Intentional OD with Excedrin migraine
#POS Salicylates and POS acetaminophen
#Anion gap metabolic acidosis
S/p the N-acetylcysteine protocol
LFTs remain normal, she was never ICU status. She was monitored in the IMU
Psych cleared to be off of one-to-one
Medically stable for discharge to inpatient psych treatment when bed available
Patient requesting [facility]
#Suicidal ideation
#Anxiety/depression
Appreciate psychiatry input, recommend starting Cymbalta 20 mg daily
Psych cleared to be off of one-to-one
#Hypokalemia
#Hypomagnesemia
#Hypophosphatemia
Repleted and resolved
#Recently diagnosed with significantly low B12 level
S/p IM B12 injection 1 week ago and then again 07/29
#Essential HTN
Blood pressure trending up, resumed amlodipine 10 mg daily
DMT2
-Resume metformin
-Carb controlled diet, SSI
IBS
-Resume fiber supplement
DVT prophylaxis�subcu Lovenox
Full code
Total time spent to see the patient on the floor, examine the patient, review data and lab results, discuss treatment plan with patient, nursing staff around 55 minutes.
Physical Exam
General: No acute distress
HEENT: Normocephalic, Atraumatic, EOMI, MMM
Respiratory: Clear to Auscultation bilaterally
Cardiac: Normal S1/S2, Regular Rate and Rhythm
GI: Soft, Nontender, Nondistended, Normal Bowel Sounds
Extremities: No Clubbing, Cyanosis, or Edema
Neuro: Nonfocal/Grossly Intact
Psych: Appears depressed
Derm: No Visible lesions
Anticipated Discharge: Within 24 hours
Subjective/Interval History
-
Date of Service: August 02, 2023
Patient is more depressed today. She is agreeable to going to inpatient psych rehab.
Objective Data
-
Labs:
Laboratory Results
08/02/23
03:51
WBC 5.1
Hgb 11.7 L
Hct 34.7 L
Plt Count 166
Sodium 135
Potassium 3.8
Chloride 107
Carbon Dioxide 26
BUN 13
Creatinine 0.5 L
Glucose 93
Calcium 9.1
Total Bilirubin 1.7 H
AST 31
ALT 13
Alkaline Phosphatase 64
Vital Signs:
Vital Signs
Temp Pulse Resp BP Pulse Ox
97.8 F 68 18 143/78 98
08/01/23 23:30 08/01/23 23:30 08/01/23 23:30 08/01/23 23:30 08/02/23 01:20
I&O
08/01/23 08/02/23 08/03/23
06:59 06:59 06:59
Intake Total 1200 / 1200 1100 / 1100
Balance 1200 / 1200 1100 / 1100
--- NOTE | 2023-08-02 12:28 | CM ---
Received CM consult for inpatient psychiatric placement - voluntary. Reviewed the chart notes and spoke with the patient and her spouse at the bedside. The patient resides with her spouse in a one story home with one step to enter. The patient
reports no DME/VN/SNF in the past. [facility] CM continues to be available to patient/family and is monitoring medical plan
for needs at discharge.
Plan: Discharge hopefully to inpatient psychiatric unit.
[2023-08-02 12:30] VITALS: BP 138/67; PULSE 73
--- NOTE | 2023-08-02 13:05 | W.PN.UPDATE ---
Update Note
Progress Note Update
Pt seen with present. Pt reports continued feelings of hopelessness, depressed mood, with negative outlook. Pt states OD on Excedrin was impulsive, but she also read about the components beforehand and reports she had lethal intent. Pt
had a brief period of feeling relief after OD, but has settled back into a depressed mood state and affect. Pt has been reluctant to go to inpatient psych facilities since she reports a negative experience at [facility] last year. Pt seemed to
be agreeable to inpatient tx after discussion. She is taking Cymbalta 20 mg QD, tolerating thus far. Pt calm, cooperative, with no signs of psychosis. Reviewed case with hospitalist.
Imp: Major Depressive d/o, intentional OD/suicide attempt
R/o personality disorder
Rec: referral to inpatient psychiatric stabilization, on voluntary basis
Continue Cymbalta, will titrate up to 30 mg QD
will follow
--- NOTE | 2023-08-02 13:54 | CM ---
Addendum entered by Hermelinda Guadalupe RN 08/02/23 14:25:
Call report to; [phone]
Patient to bring d/c instruction with to the facility.
Original Note:
Received auth, from [place], for 5 days for [facility]; NRD 08/06/23 to Luna Abel ([phone]); Auth #[id number].
IMM signed and placed on chart.
RN and attending updated.
--- NOTE | 2023-08-02 14:27 | W.DCSUMMARY ---
Discharge Summary
Discharge Data
Date of Admission: 07/30/23
Date of Discharge: 08/02/23
-
Pending Results: No
Hospital Course
Discharge diagnosis:
Intentional overdose
Suicidal ideation with plan
Severe depression
Hypokalemia
Hypomagnesemia
Hypophosphatemia
Ggd-ksjlzhh-kbjbxaaao type 2 diabetes
Benign essential hypertension
Irritable bowel syndrome
B12 deficiency
Consults: Psychiatry
Hospital course:
82-year-old female with a history of fry-waylgtv-sqarkykmn diabetes, hypertension, IBS and longstanding history of recalcitrant depression with previous intentional overdose March 2023 was admitted for intentional overdose of 2 bottles of
Excedrin migraine headache with plan of suicide attempt. Patient received the full N-acetylcysteine protocol. She was monitored in the IMU. Her liver function tests remain normal.
She was transferred to [facility]. She had low potassium/magnesium/phosphorus. This was all repleted and resolved.
Initially her medications were held, then her blood pressure increased. She was resumed on her home amlodipine 10 mg daily. Her hydrochlorothiazide was discontinued.
Patient was seen in conjunction with psychiatry, who recommended starting Cymbalta 20 mg daily. This was increased, she is discharged on 30 mg daily.
Patient is agreeable to going to inpatient psychiatric facility for further treatment. She will be discharged to [facility] in stable condition. She needs to follow-up with her primary care doctor 1 week after she
leaves rehab.
Disposition: Acute inpatient psych treatment
Discharge planning: Required 50 minutes
Discharge Plan
-
Patient Disposition: Psych Facility
Discharge Diagnosis/Procedures: Intentional drug overdose, suicidal ideation with plan, severe depression, hypokalemia, hypomagnesemia, hypophosphatemia
Condition: Good
Diet: Regular and Tube feeding
Activity: As tolerated
Driving Restrictions: As prior to admission
Activity Restrictions/Additional Instructions:
Please follow-up with your primary care doctor 1 week after you leave psychiatric facility.
Referrals:
Madelaine Woodson MD [Family Provider] - in one week
Prescriptions:
New
duloxetine 30 mg Capsule,Delayed Release(Dr/Ec)
30 mg PO DAILY Qty: 0 0RF
Continued
metformin 500 mg tablet
500 mg PO DAILY
potassium chloride 10 mEq capsule, extended release
10 meq PO DAILY
amlodipine 10 mg tablet
10 mg PO DAILY
albuterol sulfate 90 mcg/actuation HFA aerosol inhaler
2 puff INHALATION R Q6HPRN PRN (Reason: sob)
aspirin 81 mg Tablet,Delayed Release (Dr/Ec)
81 mg PO DAILY
ascorbic acid (vitamin C) [Vitamin C] 500 mg Tablet
1,000 mg PO DAILY
PreserVision AREDS-2 250-90-40-1 mg Capsule
1 tab PO BID
niacin (inositol niacinate) [Niacin Flush Free] 400 mg niacin (500 mg) Capsule
2 cap PO DAILY
cholecalciferol (vitamin D3) [Vitamin D3] 25 mcg (1,000 unit) Tablet
50 mcg PO DAILY
Metamucil Fiber Singles 3.4 gram Powder In Packet
1 packet PO DAILY
melatonin 10 mg Tablet
10 mg PO HS
Prevagen
1 tab PO DAILY
Discontinued
hydrochlorothiazide 25 mg tablet
25 mg PO DAILY
fluoxetine 20 mg tablet
50 mg PO DAILY
Discharge Orders:
Discharge Patient (As Directed); Ordered 08/02/23
Ordered By: Andrew Morales
Discharge Date and Time
Print Language: GEORGIAN
--- NOTE | 2023-08-02 15:05 | PTCARENOTE ---
[facility] by her . pt is aaox3 and report was called by this nurse to [phone].
[2023-08-02 15:15] LABS: COVID-19 Antigen Negative (Negative)
[2023-08-02 15:24] VITALS: BP 136/70
== END 2023-08-02 15:52 | DRG 918 ==
LOC: 2 NORTH 22:03
PROVIDERS: ADMITTING PHYSICIAN Internal Medicine; ATTENDING PHYSICIAN Family Medicine; CONSULT PHYSICIAN Psychiatry & Neurology Psychiatry; EMERGENCY PHYSICIAN Emergency Medicine; FAMILY PHYSICIAN Internal Medicine
DX: T39.1X2A Poisoning by 4-Aminophenol derivatives, intentional self-harm, initial encounter (principal); F33.9 Major depressive disorder, recurrent, unspecified; E87.20 Acidosis, unspecified; T39.092A Poisoning by salicylates, intentional self-harm, initial encounter; F41.9 Anxiety disorder, unspecified; I10 Essential (primary) hypertension; E11.9 Type 2 diabetes mellitus without complications; Z63.4 Disappearance and death of family member; G47.00 Insomnia, unspecified; E83.42 Hypomagnesemia; K58.8 Other irritable bowel syndrome; E87.6 Hypokalemia; E83.39 Other disorders of phosphorus metabolism; E53.8 Deficiency of other specified B group vitamins; Z91.51 Personal history of suicidal behavior; Z11.52 Encounter for screening for COVID-19
CPT/HCPCS: 80053; 80143; 80179; 80306; 81003; 82077; 82607; 82962; 83735; 84100; 85025; 85027; 85610; 85730; 87811; 93005; 96361; 96374; 96375; 96376; 97161; 99291; J0132; J7030

== ENCOUNTER 2024-09-28 10:33 | Emergency (ER) | payer OTHER, SELFPAY ==
[2024-09-28 10:35] VITALS: BP 161/78
--- NOTE | 2024-09-28 11:08 | ED.GENMED ---
History of Present Illness
General
Chief Complaint: Breathing Problem
Source: patient, records and spouse
Time Seen by Provider: 09/28/24 10:47
History of Present Illness
History of Present Illness:
This patient is an 84-year-old female who presents the emergency department with complaints of feeling like she cannot take a deep breath. She has been feeling this on and off all week, and using her albuterol inhaler without relief of symptoms.
She felt particularly anxious today which prompted her visit to the ER. She defines the symptoms as related to a 'anxiety attack'. She did speak to her psychiatrist yesterday and her medication was increased but she has not yet had that increased
that. She denies chest pain or pressure, palpitations, dizziness, nausea, vomiting, fever, chills, cough, sore throat, rhinorrhea, abdominal pain, or other complaints
Past History
Past History
ED Past Medical History: HTN, NIDDM, Psychiatric (Depression, anxiety, intentional overdose March 2023 and again today, July 2023) and Other (Irritable bowel syndrome)
ED Past Surgical History:
Social History
Tobacco: Non-smoker
Alcohol: None
Personal:
Living: with family
Employment: Retired
Family History
Family History: Other (Noncontributory)
Phy Exam
Physical Exam
Physical Exam:
GENERAL: Alert , in no apparent distress but obviously anxious
EYE: pupils equal and reactive
NECK: Supple, no significant adenopathy.
ENT: o/p clr, mmm.
CARDIAC: Regular rate and rhythm .
LUNGS: Clear breath sounds bilaterally, no acute respiratory distress, no wheezes/rales/rhonchi
ABDOMEN: Soft, without focal tenderness, no r/g, no cvat
NEUROLOGICAL: Alert and oriented, no focal neuro deficits
SKIN: Warm and dry, skin intact.
MUSCULOSKELETAL: No edema, well perfused.
PSYCH: Normal and appropriate interaction, anxious.
Scores
Heart Failure Risk
Heart Failure Risk Score: Not Applicable
Course
Orders/Labs/Results
Orders:
Orders
09/28/24 11:11
Electrocardiogram (*1) Stat
Reason for Study: Other
Other Reason for Exam: chest pain
Lorazepam [Ativan] 0.25 mg IV NOW STA
09/28/24 11:33
Basic Metabolic Panel Urgent
Complete Blood Count/No Diff Urgent
09/28/24 12:23
Lorazepam [Ativan] 0.25 mg IV NOW STA
Abnormal Lab Results
09/28/24
11:33
WBC 4.1 L 10^3/uL
(4.8-10.8)
MCH 32.2 H pg
(27.0-31.0)
Chloride 109 H mmol/L
(98-107)
Glucose 115 H mg/dl
(70-99)
Calcium 10.3 H mg/dl
(8.4-10.2)
09/28/24 11:33
09/28/24 11:33
Vital Signs
Initial and Last Documented VS:
Initial Vital Signs
Temp Pulse Resp BP Pulse Ox
97.7 F 64 20 161/78 100
09/28/24 10:35 09/28/24 10:35 09/28/24 10:35 09/28/24 10:35 09/28/24 10:35
Last Documented Vital Signs
Temp Pulse Resp BP Pulse Ox
97.7 F 66 15 130/66 99
09/28/24 10:35 09/28/24 13:45 09/28/24 13:45 09/28/24 13:00 09/28/24 13:45
*Critical Care Note
Total Time (30-74mins, 75-104mins- exclusive of procedures): Not Applicable
Update Note
Update Note:
Patient presents to the Emergency Department with feeling like she cannot get a deep breath
Number and Complexity of Problems Addressed at the Encounter
� Chronic conditions affecting care:
� Acute Exacerbation and/or Progression of Chronic Illness:
� Differential Diagnosis includes: But not limited to PE, anxiety, COPD/asthma exacerbation, URI, anemia, etc. etc.
Amount and/or Complexity of Data to be Reviewed and Analyzed
� I performed an independent evaluation of and my interpretation is:
EKG: Read by me, normal sinus rhythm, normal rate, normal axis, no acute ischemia
CT:
Xrays:
Laboratory Studies: Generally unremarkable
Other:
� Review of other/old records reveals: Patient was recently admitted for a acetaminophen overdose and thankfully recovered
� Clinical information was obtained by an independent historian: who is bedside
� Prescriptions/Medications Considered but not given:
� Further testing considered but not performed:
Risk of Complications and/or Morbidity or Mortality of Patient Management
� Social determinants of health affecting care:
� Discussion with other providers (PCP, Hospitalists, Consultants, etc):
� Escalation of care including admission/observation vs risk of discharge considered: 12:30 PM patient still feeling anxious, requesting more medication. Awake and alert.
2:09 PM patient smiling states she feels so much better would like to go home. Vitals remained stable. at bedside. Recommended close follow-up and discussed with her reasons to return to the ER.
ED Attending Note
-
Portions of this chart may have been created with voice recognition software.� Occasional wrong word or��sound alike� substitutions may have occurred due to the inherent limitations of voice recognition software.
Discharge Plan
Departure
Patient Disposition: Home (Routine Discharge)
Date of Disposition: 09/28/24
Time of Disposition: 14:08
Patient with high blood pressure during this ER visit?: Yes
Condition: Good
Discharge Problem:
Anxiety and depression
Instructions: Anxiety in adults - ED discharge instructions, BLOOD PRESSURE
Prescriptions:
No Action
metformin 500 mg tablet
500 mg PO DAILY
potassium chloride 10 mEq capsule, extended release
10 meq PO DAILY
amlodipine 10 mg tablet
10 mg PO DAILY
albuterol sulfate 90 mcg/actuation HFA aerosol inhaler
2 puff INHALATION R Q6HPRN PRN (Reason: sob)
aspirin 81 mg Tablet,Delayed Release (Dr/Ec)
81 mg PO DAILY
ascorbic acid (vitamin C) [Vitamin C] 500 mg Tablet
1,000 mg PO DAILY
PreserVision AREDS-2 250-90-40-1 mg Capsule
1 tab PO BID
niacin (inositol niacinate) [Niacin Flush Free] 400 mg niacin (500 mg) Capsule
2 cap PO DAILY
cholecalciferol (vitamin D3) [Vitamin D3] 25 mcg (1,000 unit) Tablet
50 mcg PO DAILY
Metamucil Fiber Singles 3.4 gram Powder In Packet
1 packet PO DAILY
melatonin 10 mg Tablet
10 mg PO HS
Prevagen
1 tab PO DAILY
duloxetine 30 mg Capsule,Delayed Release(Dr/Ec)
30 mg PO DAILY Qty: 0 0RF
Referrals:
Madelaine Woodson MD [Family Provider, Internal Medicine]
Activity Restrictions/Additional Instructions:
PLEASE SEE YOUR THERAPIST/PSYCHIATRIST IN CLOSE FOLLOW UP.
Interventions
Interventions:
*Risk Screen - Suicide Last Done: 09/28/24 10:39
*General Assessment Last Done: 09/28/24 10:39
ED- Cardiac Assessment Last Done: 09/28/24 11:50
ED- Pulmonary Assessment Last Done: 09/28/24 11:50
Discharge Date and Time
Print Language: [place]
[2024-09-28] MEDS: ATIVAN 0.25 MG IV ×2 (11:33→12:28)
[2024-09-28 11:41] LABS: Hematocrit 40.4 % (37.0-47.0); Hemoglobin 14.6 g/dL (12.0-16.0); Mean Corp Hgb Conc. 36.1 g/dL (33.0-37.0); Mean Corpuscular Hgb 32.2 pg (27.0-31.0); Mean Corpuscular Volume 89.2 fL (81.0-99.0); Mean Platelet Volume 8.8 fL (7.4-10.4); Platelet Count 191 10^3/uL (130-400); Red Blood Cell Count 4.53 10^6/uL (4.20-5.40); Red Cell Dist. Width 12.2 % (11.5-14.5); White Blood Cell Count 4.1 10^3/uL (4.8-10.8)
[2024-09-28 12:00] VITALS: BP 141/69
[2024-09-28 12:21] LABS: Blood Urea Nitrogen 10 mg/dl (7-17); Calcium 10.3 mg/dl (8.4-10.2); Carbon Dioxide 29 mmol/L (22-30); Chloride 109 mmol/L (98-107); Glucose 115 mg/dl (70-99); Potassium 3.8 mmol/L (3.5-5.1); Sodium 141 mmol/L (135-145); eGFR > 60.00
[2024-09-28 13:00] VITALS: BP 130/66
== END 2024-09-28 14:38 | disposition home or self-care (01) ==
LOC: EMR 10:33
PROVIDERS: EMERGENCY PHYSICIAN Emergency Medicine; FAMILY PHYSICIAN Internal Medicine
DX: F41.9 Anxiety disorder, unspecified (principal); F32.A Depression, unspecified; I10 Essential (primary) hypertension; E11.9 Type 2 diabetes mellitus without complications; K58.9 Irritable bowel syndrome, unspecified; Z91.51 Personal history of suicidal behavior
CPT/HCPCS: 99283; 96374; 96376; 80048; 85027; 93005

== ENCOUNTER 2025-03-28 14:50 | Emergency (ER) | payer OTHER, SELFPAY ==
[2025-03-28 15:00] VITALS: BP 129/80
[2025-03-28 15:48] LABS: Hematocrit 41.6 % (37.0-47.0); Hemoglobin 14.8 g/dL (12.0-16.0); Mean Corp Hgb Conc. 35.6 g/dL (33.0-37.0); Mean Corpuscular Volume 91.4 fL (81.0-99.0); Nucleated Red Blood Cells % 0 %; Platelet Count 220 10^3/uL (130-400); Red Cell Dist. Width 12.5 % (11.5-14.5)
[2025-03-28 16:03] LABS: ALT (SGPT) 12 U/L (0-35); AST (SGOT) 18 U/L (14-36); Albumin 4.4 g/dl (3.5-5.0); Alkaline Phosphatase 92 U/L (38-126); Blood Urea Nitrogen 17 mg/dl (7-17); Calcium 9.7 mg/dl (8.4-10.2); Carbon Dioxide 28 mmol/L (22-30); Chloride 104 mmol/L (98-107); Glucose 181 mg/dl (70-99); Potassium 4.2 mmol/L (3.5-5.1); Sodium 135 mmol/L (135-145); Total Protein 7.0 g/dl (6.3-8.2); eGFR > 60.00
--- NOTE | 2025-03-28 16:03 | ED.GENMED ---
History of Present Illness
<Modesta Lyn MD, Resident - Last Filed: 03/28/25 19:00>
General
Chief Complaint: Change in Mental Status
Source: patient and significant other
Exam Limitations: none
Time Seen by Provider: 03/28/25 16:02
Nursing documentation reviewed up to this point in time: agreed with
History of Present Illness
History of Present Illness:
84yo F with a hx of anx/depression and allergic rhinitis who presents with brain fog and feeling 'off' this afternoon.
Pt states that this afternoon after her psych appt, she noticed that she was feeling brain fog/'off' and was having trouble recalling facts like the names of her medications. Per , patient seemed like maybe she was lightheaded. Pt denies
dehydration or palpitations accompanying episode. Denies any speech or word finding difficulty. Denies any diaphoresis. Denies any changes in vision, denies any unilateral weakness or numbness of face or extremities. Denies any fever/chills or
recent illness/sick contacts, although she endorses feeling a bit flushed/warm during the episode. Denies any vertigo or balance issues. Denies any changes to medications today other than taking her nasal spray during the daytime, which she usually
doesn't do (azelastine spray; antihistamine).
Of note, patient's nighttime venlafaxine dose was recently increased from 75mg to 112.5mg (pt was able to recall this detail on exam). She also takes gabapentin at night. States that these two often make her feel like she has josé manuel fog.
Past History
<Modesta Lyn MD, Resident - Last Filed: 03/28/25 19:00>
Past History
ED Past Medical History: HTN, NIDDM, Psychiatric (Depression, anxiety, intentional overdose March 2023 and again today, July 2023) and Other (Irritable bowel syndrome)
ED Past Surgical History:
Social History
Tobacco: Non-smoker
Alcohol: None
Personal:
Living: with family
Employment: Retired
Family History
Family History: Other (Noncontributory)
Review of Systems
<Modesta Lyn MD, Resident - Last Filed: 03/28/25 19:00>
Review of Systems
Allergies reviewed?: Yes
All Other Systems: ROS reviewed and negative except as documented in HPI and ROS
Constitutional: Reports other (felt flushed )
EENT: Reports no symptoms
Respiratory: Reports no symptoms
Cardiac: Reports no symptoms
ABD/GI: Reports no symptoms
: Reports no symptoms
Musculoskeletal: Reports no symptoms
Skin: Reports no symptoms
Neurological: Reports other (brain fog )
Psychiatric: Reports no symptoms
Phy Exam
<Modesta Lyn MD, Resident - Last Filed: 03/28/25 19:00>
General Physical Exam
General Presentation: well appearing
General age: appears stated age
General Skin: warm and dry
General Habitus: normal
General Mental: alert
Eye Exam
Eye Exam: PERRL and EOMI
Cardiovascular Exam
Cardiovascular Exam: regular rate/rhythm and no edema
Heart Sounds: normal
Pulmonary Exam
Pulmonary Exam: lungs clear and no respiratory distress
Gastrointestinal Exam
Gastrointestinal Exam: non tender, soft and non distended
Neurological Exam
Neurological Exam: alert, oriented x3, CN II-XII intact, no motor deficits, no sensory deficits and speech normal
Skin Exam
Skin Exam: normal color and warm/dry
Psychiatric Exam
Psychiatric Exam: normal mood/affect
Course
<Modesta Lyn MD, Resident - Last Filed: 03/28/25 19:00>
Orders/Labs/Results
Orders:
Orders
03/28/25 15:19
Complete Blood Count/With Diff Urgent
03/28/25 15:20
Comprehensive Metabolic Panel Urgent
03/28/25 15:56
Urinalysis Reflex To Culture Urgent
Date Specimen was Collected: 03/28/25
Time Specimen was Collected: 15:04
03/28/25 16:28
Electrocardiogram (*1) Urgent
Reason for Study: Syncope
03/28/25 16:29
CT Head W/o Iv Contrast Urgent
Comment:
Reason For Exam: AMS
Abnormal Lab Results
03/28/25 03/28/25 03/28/25
15:19 15:20 15:56
MCH 32.5 H pg
(27.0-31.0)
Glucose 181 H mg/dl
(70-99)
Total Bilirubin 2.8 H mg/dl
(0.2-1.3)
Urine Urobilinogen 2+ A
(Neg - 1+)
03/28/25 15:19
03/28/25 15:20
Vital Signs
Initial and Last Documented VS:
Initial Vital Signs
Temp Pulse Resp BP Pulse Ox
98.1 F 79 20 129/80 99
03/28/25 15:00 03/28/25 15:00 03/28/25 15:00 03/28/25 15:00 03/28/25 15:00
Last Documented Vital Signs
Temp Pulse Resp BP Pulse Ox
98.1 F 59 23 129/80 99
03/28/25 15:00 03/28/25 18:30 03/28/25 18:30 03/28/25 15:00 03/28/25 18:30
<Jassi Gonzalez MD - Last Filed: 03/28/25 16:49>
Orders/Labs/Results
Orders:
Orders
03/28/25 15:19
Complete Blood Count/With Diff Urgent
03/28/25 15:20
Comprehensive Metabolic Panel Urgent
03/28/25 15:56
Urinalysis Reflex To Culture Urgent
Date Specimen was Collected: 03/28/25
Time Specimen was Collected: 15:04
03/28/25 16:28
Electrocardiogram (*1) Urgent
Reason for Study: Syncope
03/28/25 16:29
CT Head W/o Iv Contrast Urgent
Comment:
Reason For Exam: AMS
Abnormal Lab Results
03/28/25 03/28/25 03/28/25
15:19 15:20 15:56
MCH 32.5 H pg
(27.0-31.0)
Glucose 181 H mg/dl
(70-99)
Total Bilirubin 2.8 H mg/dl
(0.2-1.3)
Urine Urobilinogen 2+ A
(Neg - 1+)
03/28/25 15:19
03/28/25 15:20
Vital Signs
Initial and Last Documented VS:
Initial Vital Signs
Temp Pulse Resp BP Pulse Ox
98.1 F 79 20 129/80 99
03/28/25 15:00 03/28/25 15:00 03/28/25 15:00 03/28/25 15:00 03/28/25 15:00
Last Documented Vital Signs
Temp Pulse Resp BP Pulse Ox
98.1 F 59 23 129/80 99
03/28/25 15:00 03/28/25 18:30 03/28/25 18:30 03/28/25 15:00 03/28/25 18:30
<Modesta Lyn MD, Resident - Last Filed: 03/28/25 19:00>
MDM/Problems Addressed
Differential Diagnosis Includes:
Ddx:
Medication SE (increased SNRI + gabapentin + antihistamine)
Dehydration, pre-vasovagal episode
Arrhythmia, cardiogenic presyncope
CVA (no focal neuro sx, atypical presentation)
Occult infection, UTI
MDM/Problems Addressed:
- CBC, CMP
- UA w reflex
- EKG
- CT head wo contrast
<Modesta Lyn MD, Resident - Last Filed: 03/28/25 19:00>
*Pulse Oximetry
SaO2: 99
Oxygen Mode of Delivery: Room air
Patient hypoxic: no
*Critical Care Note
Total Time (30-74mins, 75-104mins- exclusive of procedures): Not Applicable
<Modesta Lyn MD, Resident - Last Filed: 03/28/25 19:00>
Update Note
Update Note:
EKG unremarkable, no c/f arrhythmia
CT head unremarkable
ED Attending Note
<Modesta Lyn MD, Resident - Last Filed: 03/28/25 19:00>
-
Portions of this chart may have been created with voice recognition software.� Occasional wrong word or��sound alike� substitutions may have occurred due to the inherent limitations of voice recognition software.
<Jassi Gonzalez MD - Last Filed: 03/28/25 16:49>
ED Attending Note
Patient seen and examined by attending physician: Yes
I performed a history and physical exam of patient and discussed management with resident, I reviewed resident's note and agree with documented findings and plan of care.: Yes
ED Attending Note:
84-year-old female with a transient episode of confusion where she could not remember her meds or doses. This occurred hours ago. did not notice any issues. Feels like symptoms have resolved. No history of same.
Patient did take her nasal spray of antihistamine today which she does not normally do during the day.
On exam patient is alert oriented x 3 in no distress. Her memory is good. Cranial nerves II through XII intact. Speech normal. No facial droop. No arm drift. Good lower extremity strength. No carotid bruit. Lungs clear and equal. Heart
regular rate and rhythm. Abdomen benign.
Labs are stable.
Impression is a transient brief memory issue. All self resolved. Would have to consider a TIA although unlikely. Even MRI would be unlikely to add benefit at this time. Will do a CT scan to screen. Check EKG. If all stable patient will be
discharged to for follow-up on low-dose aspirin
Discharge Plan
Departure
Patient Disposition: Home (Routine Discharge)
Date of Disposition: 03/28/25
Time of Disposition: 18:57
Patient with high blood pressure during this ER visit?: No
Condition: Good
Covid-19: Not Applicable
Discharge Problem:
Brain fog
Prescriptions:
No Action
metformin 500 mg tablet
500 mg PO DAILY
potassium chloride 10 mEq capsule, extended release
10 meq PO DAILY
amlodipine 10 mg tablet
10 mg PO DAILY
albuterol sulfate 90 mcg/actuation HFA aerosol inhaler
2 puff INHALATION R [id number] PRN (Reason: sob)
aspirin 81 mg Tablet,Delayed Release (Dr/Ec)
81 mg PO DAILY
ascorbic acid (vitamin C) [Vitamin C] 500 mg Tablet
1,000 mg PO DAILY
PreserVision AREDS-2 250-90-40-1 mg Capsule
1 tab PO BID
niacin (inositol niacinate) [Niacin Flush Free] 400 mg niacin (500 mg) Capsule
2 cap PO DAILY
cholecalciferol (vitamin D3) [Vitamin D3] 25 mcg (1,000 unit) Tablet
50 mcg PO DAILY
Metamucil Fiber (aspartame) 3.4 gram Powder In Packet
1 packet PO DAILY
melatonin 10 mg Tablet
10 mg PO HS
Prevagen
1 tab PO DAILY
duloxetine 30 mg Capsule,Delayed Release(Dr/Ec)
30 mg PO DAILY Qty: 0 0RF
Referrals:
Madelaine Woodson MD [Family Provider, Internal Medicine]
Activity Restrictions/Additional Instructions:
You were seen here for brain fog and difficulty with memory this afternoon. Workup was negative for any signs of a heart attack, arrhythmia, or bleeding/mass in the brain. Your labs also didn't raise concerns for any abnormalities. It is unlikely
that these symptoms were caused by a TIA, but you may take a baby aspirin as a precaution.
Your symptoms may be due to the combination of medications you are on, which can all cause drowsiness (including the antihistamine nasal spray you used this afternoon). You may discuss this with your primary care provider, and be sure to stay
well-hydrated.
Return to the ED if you have any new symptoms such as unilateral weakness or numbness, severe headache, or vision loss.
Interventions
Interventions:
*Risk Screen - Suicide Last Done: 03/28/25 15:00
*General Assessment Last Done: 03/28/25 15:00
*Neglect/Abuse Screening Last Done: 03/28/25 15:00
*ED- Fall Risk Assessment Last Done: 03/28/25 16:07
ED- Neurological Assessment Last Done: 03/28/25 16:07
Discharge Date and Time
Print Language: LIBYAN
[2025-03-28 16:05] LABS: Urine Character Clear (Clear)
== END 2025-03-28 19:43 | disposition home or self-care (01) ==
LOC: EMR 14:50
PROVIDERS: Emergency Medicine; EMERGENCY PHYSICIAN Emergency Medicine; FAMILY PHYSICIAN Internal Medicine
DX: R41.89 Other symptoms and signs involving cognitive functions and awareness (principal); E11.9 Type 2 diabetes mellitus without complications; I10 Essential (primary) hypertension; Z91.51 Personal history of suicidal behavior
CPT/HCPCS: 99284; 70450; 80053; 81003; 85025; 93005